=== PATIENT | male | born 1960 | race Caucasian/White ===

== ENCOUNTER → 2016-11-29 | Outpatient (CLI) | payer OTHER ==
[2015-08-27 12:30] VITALS: BP 128/78
[~2016-11-29] MED LIST: ALLO300T PO; METF850T2 PO; POTA10TA17 PO; TELM40TA PO
--- NOTE | 2016-11-29 12:57 | RAD ---
Indication abdominal pain. Supine films of the abdomen were obtained. Note is made of a previous plain film examination 09/17/2015. Note is made of the CT examination 08/27/2015 demonstrating bilateral renal calculi. The abdominal gas pattern is unremarkable. Bilateral renal calculi are noted. There is a right ureteral stent extending from the expected position of the renal pelvis to the urinary bladder. No definite calculi are seen along the course of the stent. Visualized bony structures appear grossly intact. IMPRESSION: Normal gas pattern. Right ureteral stent. No acute finding seen on KUB
== END | disposition home or self-care (01) ==
LOC: DXRAD 12:27
PROVIDERS: ATTEND Family Medicine
DX: N20.0 Calculus of kidney (principal)
CPT/HCPCS: 74000

== ENCOUNTER 2017-07-14 00:09 | Emergency (ER) | payer OTHER ==
[~2017-07-14] VITALS: Ht 182.9 cm; Wt 108.9 kg
[2017-07-14] MEDS ORDERED: ONDANSETRON ODT 4 MG TAB.RAPDIS ONE (00:14)
[2017-07-14] MEDS ORDERED: ONDANSETRON ODT 4 MG TAB.RAPDIS PO ONE (00:30)
[2017-07-14] MEDS ORDERED: PROMETHAZINE 12.5 MG in IV NORMAL SALINE 50ML 50 ML IV PRN (00:30)
[2017-07-14] MEDS ORDERED: IV NORMAL SALINE 50ML 50 ML ONE (00:39)
[2017-07-14] MEDS ORDERED: PROMETHAZINE 25 MG/ML VIAL IV ONE (00:39)
[2017-07-14 00:51] LABS: BASO % 0 % (0-3); EOS # 0.1 x10^3/uL (0.0-0.7); EOS % 1 % (0-3); HEMATOCRIT 49.4 % (39.0-53.0); LYMPH # 0.4 x10^3/uL (1.0-4.8); LYMPH % 3 % (24-48); MEAN CORPUSCULAR HEMOGLOBIN 30 pg (25-35); MEAN CORPUSCULAR HGB CONC 34 g/dL (31-37); MEAN CORPUSCULAR VOLUME 86 fL (79-100); MONO # 0.4 x10^3/uL (0.0-1.1); MONO % 3 % (0-9); NEUT # 11.9 x10^3uL (1.8-7.7); NEUT % 94 % (31-73); PLATELET COUNT 215 x10^3/uL (140-400); RED BLOOD COUNT 5.74 x10^6/uL (4.30-5.70); RED CELL DISTRIBUTION WIDTH 13.7 % (11.5-14.5); WHITE BLOOD COUNT 12.8 x10^3/uL (4.0-11.0)
[2017-07-14] MEDS ORDERED: MORPHINE SULFATE 4 MG/ML DISP.SYRIN. IV ONE (01:00)
[2017-07-14] MEDS ORDERED: KETOROLAC 30 MG/ML VIAL. IV ONE (01:00)
[2017-07-14] MEDS ORDERED: IV NORMAL SALINE 1,000ML 1,000 ML IV ONE ×2 (01:00→01:30)
[2017-07-14 01:21] LABS: CALCIUM 9.3 mg/dL (8.5-10.1); CREATININE 1.4 mg/dL (0.7-1.3); GFR 51.9; POTASSIUM 4.6 mmol/L (3.5-5.1); TOTAL BILIRUBIN 0.9 mg/dL (0.2-1.0)
--- NOTE | 2017-07-14 01:40 | ED.ADGEN ---
Past History Past Medical History: Diabetes, Hypertension, Kidney Stones Past Surgical History: Other Alcohol Use: None Drug Use: None Adult General Chief Complaint Chief Complaint Left flank pain, vomiting HPI HPI Patient is a 57-year-old male with history of kidney stones presents with intermittent left flank pain and vomiting times several hours. Patient states he states he has a known 9 millimeters stone and is scheduled to urology in [place] in [place] AM for surgical intervention. He states symptoms feel similar to previous stones. He vomited multiple times prior to ED arrival. No gross hematuria. No fever chills or sweats. No other symptoms or complaints.[] Review of Systems Review of Systems Review symptoms as per history of present illness. All other review symptoms are negative. All other systems were reviewed and found to be within normal limits, except as documented in this note. Current Medications Current Medications Current Medications Medications (Trade) Dose Ordered Sig/Rashi Start Time Stop Time Status Last Admin Dose Admin Ketorolac Tromethamine (Toradol) 30 mg 1X ONCE 07/14/17 01:00 07/14/17 01:01 DC 07/14/17 00:46 30 MG Morphine Sulfate (Morphine 4mg Syringe) 4 mg 1X ONCE 07/14/17 01:00 07/14/17 01:01 DC 07/14/17 00:46 4 MG Ondansetron HCl (Zofran Odt) 4 mg 1X ONCE 07/14/17 00:30 07/14/17 00:32 DC 07/14/17 00:46 4 MG Promethazine HCl (Phenergan) 25 mg STK-MED ONCE 07/14/17 00:39 07/14/17 00:40 DC Promethazine HCl (Starter Pack - Phenergan) 1 startpack 1X ONCE 07/14/17 03:00 07/14/17 03:01 07/14/17 02:46 1 STARTPACK Promethazine HCl 12.5 mg/Sodium Chloride 50.5 ml @ 101 mls/hr PRN Q6HRS PRN 07/14/17 00:30 07/14/17 00:47 101 MLS/HR Sodium Chloride 1,000 ml @ 1,000 mls/hr 1X ONCE 07/14/17 01:30 07/14/17 02:29 DC 07/14/17 01:30 1,000 MLS/HR Allergies Allergies Allergies Coded Allergies Type Severity Reaction Last Updated Verified No Known Drug Allergies 08/27/15 No Physical Exam Physical Exam Constitutional: Well developed, well nourished, no acute distress, non-toxic appearance. [] HENT: Normocephalic, atraumatic, bilateral external ears normal, oropharynx moist, no oral exudates, nose normal. [] Eyes: PERRLA, EOMI, conjunctiva normal, no discharge. [] Neck: Normal range of motion, no tenderness, supple, no stridor. [] Cardiovascular:Heart rate regular rhythm, no murmur [] Lungs & Thorax: Bilateral breath sounds clear to auscultation [] Abdomen: Bowel sounds normal, soft, no tenderness, no masses, no pulsatile masses. [] Skin: Warm, dry, no erythema, no rash. [] Back: No tenderness, no CVA tenderness. [] Neurologic: Alert and oriented X 3, normal motor function, normal sensory function, no focal deficits noted. [] Psychologic: Affect normal, judgement normal, mood normal. [] Current Patient Data Vital Signs Vital Signs Date Time Temp Pulse Resp B/P (MAP) Pulse Ox O2 Delivery O2 Flow Rate FiO2 07/14/17 00:09 98.2 118 24 98 Room Air Lab Results Laboratory Tests Test 07/14/17 00:33 07/14/17 01:40 White Blood Count 12.8 x10^3/uL (4.0-11.0) H Red Blood Count 5.74 x10^6/uL (4.30-5.70) H Hemoglobin 17.0 g/dL (13.0-17.5) Hematocrit 49.4 % (39.0-53.0) Mean Corpuscular Volume 86 fL (79-100) Mean Corpuscular Hemoglobin 30 pg (25-35) Mean Corpuscular Hemoglobin Concent 34 g/dL (31-37) Red Cell Distribution Width 13.7 % (11.5-14.5) Platelet Count 215 x10^3/uL (140-400) Neutrophils (%) (Auto) 94 % (31-73) H Lymphocytes (%) (Auto) 3 % (24-48) L Monocytes (%) (Auto) 3 % (0-9) Eosinophils (%) (Auto) 1 % (0-3) Basophils (%) (Auto) 0 % (0-3) Neutrophils # (Auto) 11.9 x10^3uL (1.8-7.7) H Lymphocytes # (Auto) 0.4 x10^3/uL (1.0-4.8) L Monocytes # (Auto) 0.4 x10^3/uL (0.0-1.1) Eosinophils # (Auto) 0.1 x10^3/uL (0.0-0.7) Basophils # (Auto) 0.0 x10^3/uL (0.0-0.2) Sodium Level 140 mmol/L (136-145) Potassium Level 4.6 mmol/L (3.5-5.1) Chloride Level 102 mmol/L (98-107) Carbon Dioxide Level 26 mmol/L (21-32) Anion Gap 12 (6-14) Blood Urea Nitrogen 17 mg/dL (8-26) Creatinine 1.4 mg/dL (0.7-1.3) H Estimated GFR (Cockcroft-Gault) 51.9 BUN/Creatinine Ratio 12 (6-20) Glucose Level 203 mg/dL (70-99) H Calcium Level 9.3 mg/dL (8.5-10.1) Total Bilirubin 0.9 mg/dL (0.2-1.0) Aspartate Amino Transferase (AST) 30 U/L (15-37) Alanine Aminotransferase (ALT) 52 U/L (16-63) Alkaline Phosphatase 87 U/L (46-116) Total Protein 8.0 g/dL (6.4-8.2) Albumin 4.0 g/dL (3.4-5.0) Albumin/Globulin Ratio 1.0 (1.0-1.7) Urine Collection Type Unknown Urine Color Yellow Urine Clarity Clear Urine pH 5.0 Urine Specific [place] 1.020 Urine Protein Neg (NEG-TRACE) Urine Glucose (UA) 100 mg/dL (NEG) Urine Ketones (Stick) 15 mg/dL (NEG) Urine Blood Neg (NEG) Urine Nitrite Neg (NEG) Urine Bilirubin Neg (NEG) Urine Urobilinogen Dipstick 0.2 mg/dL (0.2 mg/dL) Urine Leukocyte Esterase Neg (NEG) Urine RBC 0 /HPF (0-2) Urine WBC Rare /HPF (0-4) Urine Squamous Epithelial Cells Occ /LPF Urine Bacteria 0 /HPF (0-FEW) EKG EKG [] Radiology/Procedures Radiology/Procedures [XR KUB: Ureteral stones superimposed over kidney] Course & Med Decision Making Course & Med Decision Making Pertinent Labs and Imaging studies reviewed. (See chart for details) [Left flank pain nausea vomiting consistent with known kidney stone. Pain medication, fluid bolus nausea medication given. Patient resting My request discharge home. Patient has follow-up plans later this afternoon with Dr. Means in [facility]. Return precautions reviewed.] Final Impression Final Impression [1. Left flank pain 2. Ureteral colic] Problems: Dragon Disclaimer Dragon Disclaimer This electronic medical record was generated, in whole or in part, using a voice recognition dictation system. LULU MOE DO Jul 14, 2017 01:40
[2017-07-14 02:05] LABS: BACTERIA,URINE 0 /HPF (0-FEW); BILIRUBIN,URINE NEG (NEG); CLARITY,URINE CLEAR; COLOR,URINE YELLOW; GLUCOSE,URINE 100 mg/dL (NEG); NITRITE,URINE NEG (NEG); RBC,URINE 0 /HPF (0-2); SQUAMOUS EPITHELIAL CELL,UR OCC /LPF; UROBILINOGEN,URINE 0.2 mg/dL (0.2 mg/dL); WBC,URINE RARE /HPF (0-4)
[2017-07-14 02:45] VITALS: BP 132/83
[2017-07-14] MEDS ORDERED: PROMETHAZINE 25MG 4TABLET STARTPACK. PO ONE (03:00)
--- NOTE | 2017-07-14 07:51 | RAD ---
KUB, 07/14/2017: History: Left flank pain, previous kidney stones Comparison is made to a study from 11/29/2016. The right ureteral stent has been removed. The abdominal gas pattern is unremarkable. The right renal region is largely obscured by overlying bowel. There are several small radiopacities projected over the mid and lower pole of the left kidney compatible with intrarenal calculi. There is no evidence of organomegaly. IMPRESSION: 1. Left intrarenal calculi. 2. No acute abdominal abnormality is detected. 3. If there is clinical suspicion of a ureteral calculus, CT scanning is suggested for further evaluation.
== END 2017-07-14 02:52 | disposition home or self-care (01) ==
LOC: ER 00:09
DX: N23 Unspecified renal colic (principal); E11.9 Type 2 diabetes mellitus without complications; I10 Essential (primary) hypertension; Z87.442 Personal history of urinary calculi
CPT/HCPCS: 36415; 74018; 80053; 81001; 85025; 96361; 96365; 96375; 99285; J1885; J2270; J2550; Q0162; J7030

== ENCOUNTER 2017-07-21 20:31 | Emergency (ER) | payer OTHER ==
[~2017-07-21] VITALS: Ht 182.9 cm; Wt 104.3 kg
[2017-07-21] MEDS ORDERED: IV NORMAL SALINE 1,000ML 1,000 ML IV SCH (22:08)
[2017-07-21] MEDS ORDERED: ONDANSETRON PF 4 MG/2 ML VIAL. IV ONE (22:15)
[2017-07-21 22:32] LABS: BASO % 1 % (0-3); EOS # 0.1 x10^3/uL (0.0-0.7); EOS % 1 % (0-3); HEMATOCRIT 48.9 % (39.0-53.0); LYMPH % 21 % (24-48); MEAN CORPUSCULAR HEMOGLOBIN 30 pg (25-35); MEAN CORPUSCULAR HGB CONC 35 g/dL (31-37); MEAN CORPUSCULAR VOLUME 85 fL (79-100); MONO # 0.7 x10^3/uL (0.0-1.1); MONO % 15 % (0-9); NEUT % 62 % (31-73); PLATELET COUNT 239 x10^3/uL (140-400); RED BLOOD COUNT 5.77 x10^6/uL (4.30-5.70); RED CELL DISTRIBUTION WIDTH 13.9 % (11.5-14.5); WHITE BLOOD COUNT 4.8 x10^3/uL (4.0-11.0)
[2017-07-21 22:42] LABS: ALBUMIN 3.7 g/dL (3.4-5.0); ALBUMIN/GLOBULIN RATIO 0.8 (1.0-1.7); CREATININE 1.5 mg/dL (0.7-1.3); GFR 47.9; POTASSIUM 4.2 mmol/L (3.5-5.1); TOTAL BILIRUBIN 0.8 mg/dL (0.2-1.0); TOTAL PROTEIN 8.3 g/dL (6.4-8.2)
[2017-07-21 22:50] LABS: BACTERIA,URINE 0 /HPF (0-FEW); BILIRUBIN,URINE NEG (NEG); CLARITY,URINE CLEAR; COLOR,URINE AMBER; GLUCOSE,URINE NEG (NEG); NITRITE,URINE POS (NEG); RBC,URINE TNTC /HPF (0-2); SQUAMOUS EPITHELIAL CELL,UR OCC /LPF; UROBILINOGEN,URINE 0.2 mg/dL (0.2 mg/dL)
--- NOTE | 2017-07-21 23:00 | PHYS DOC ---
Past History Past Medical History: Diabetes, Hypertension, Kidney Stones Additional Past Medical Histor: Gout Past Surgical History: Other Additional Past Surgical Histo: Cystoscopy with stent; Shoulder Smoking: Non-smoker Alcohol Use: None Drug Use: None Adult General Chief Complaint Chief Complaint: FEVER HPI HPI Patient is a 57 year old male who presents with fever. He recently had a cystoscopy with stone removal and stent placement on 07/14/16 at [place], [place]. His stent was removed 07/19/16. He was on bactrim for a few days after surgery and has completed that. He noticed that he had temperature 100.1. Nausea and vomiting as well. No blood in urine that he can see. He has diffuse body aches. No sore throat or cough. No abdominal pain. Review of Systems Review of Systems Constitutional: POS fever or chills Eyes: Denies change in visual acuity, redness, or eye pain HENT: Denies nasal congestion or sore throat Respiratory: Denies cough or shortness of breath Cardiovascular: No chest pain GI: Denies abdominal pain, POS nausea & vomiting, Denies bloody stools or diarrhea : Denies dysuria or hematuria Musculoskeletal: POS back pain and joint pain Integument: Denies rash or skin lesions Neurologic: Denies headache, focal weakness or sensory changes All other systems were reviewed and found to be within normal limits, except as documented in this note. Current Medications Current Medications Current Medications Medications (Trade) Dose Ordered Sig/Rashi Start Time Stop Time Status Last Admin Dose Admin Ondansetron HCl (Zofran) 4 mg 1X ONCE 07/21/17 22:15 07/21/17 22:17 DC 07/21/17 22:26 4 MG Sodium Chloride 1,000 ml @ 1,000 mls/hr Q1H 07/21/17 22:08 07/21/17 23:07 07/21/17 22:26 1,000 MLS/HR Allergies Allergies Allergies Coded Allergies Type Severity Reaction Last Updated Verified No Known Drug Allergies 08/27/15 No Physical Exam Physical Exam Constitutional: Well developed, well nourished, no acute distress, non-toxic appearance. HENT: Normocephalic, atraumatic, bilateral external ears normal, oropharynx moist, no oral exudates, nose normal. Eyes: PERRLA, EOMI, conjunctiva normal, no discharge. Neck: Normal range of motion, no tenderness, supple, no stridor. Cardiovascular:Heart rate regular rhythm, no murmur Lungs & Thorax: Bilateral breath sounds clear to auscultation Abdomen: Bowel sounds normal, soft, no tenderness, no masses, no pulsatile masses. Skin: Warm, dry, no erythema, no rash. Back: No tenderness, no CVA tenderness. Extremities: No tenderness, no cyanosis, no clubbing, ROM intact, no edema. Neurologic: Alert and oriented X 3, normal motor function, normal sensory function, no focal deficits noted. Psychologic: Affect normal, judgement normal, mood normal. Current Patient Data Lab Results Laboratory Tests Test 07/21/17 22:05 White Blood Count 4.8 x10^3/uL (4.0-11.0) Red Blood Count 5.77 x10^6/uL (4.30-5.70) H Hemoglobin 17.0 g/dL (13.0-17.5) Hematocrit 48.9 % (39.0-53.0) Mean Corpuscular Volume 85 fL (79-100) Mean Corpuscular Hemoglobin 30 pg (25-35) Mean Corpuscular Hemoglobin Concent 35 g/dL (31-37) Red Cell Distribution Width 13.9 % (11.5-14.5) Platelet Count 239 x10^3/uL (140-400) Neutrophils (%) (Auto) 62 % (31-73) Lymphocytes (%) (Auto) 21 % (24-48) L Monocytes (%) (Auto) 15 % (0-9) H Eosinophils (%) (Auto) 1 % (0-3) Basophils (%) (Auto) 1 % (0-3) Neutrophils # (Auto) 3.0 x10^3uL (1.8-7.7) Lymphocytes # (Auto) 1.0 x10^3/uL (1.0-4.8) Monocytes # (Auto) 0.7 x10^3/uL (0.0-1.1) Eosinophils # (Auto) 0.1 x10^3/uL (0.0-0.7) Basophils # (Auto) 0.0 x10^3/uL (0.0-0.2) Platelet Estimate Pending Urine Collection Type Unknown Urine Color [place] Urine Clarity Clear Urine pH 5.0 Urine Specific [place] 1.020 Urine Protein 100 mg/dl (NEG-TRACE) Urine Glucose (UA) Neg mg/dL (NEG) Urine Ketones (Stick) 15 mg/dL (NEG) Urine Blood Large (NEG) Urine Nitrite Pos (NEG) Urine Bilirubin Neg (NEG) Urine Urobilinogen Dipstick 0.2 mg/dL (0.2 mg/dL) Urine Leukocyte Esterase Neg (NEG) Urine RBC Tntc /HPF (0-2) Urine WBC 1-4 /HPF (0-4) Urine Squamous Epithelial Cells Occ /LPF Urine Bacteria 0 /HPF (0-FEW) Urine Mucus Slight /LPF Sodium Level 135 mmol/L (136-145) L Potassium Level 4.2 mmol/L (3.5-5.1) Chloride Level 99 mmol/L (98-107) Carbon Dioxide Level 24 mmol/L (21-32) Anion Gap 12 (6-14) Blood Urea Nitrogen 11 mg/dL (8-26) Creatinine 1.5 mg/dL (0.7-1.3) H Estimated GFR (Cockcroft-Gault) 47.9 BUN/Creatinine Ratio 7 (6-20) Glucose Level 162 mg/dL (70-99) H Lactic Acid Level 0.9 mmol/L (0.4-2.0) Calcium Level 9.0 mg/dL (8.5-10.1) Total Bilirubin 0.8 mg/dL (0.2-1.0) Aspartate Amino Transferase (AST) 117 U/L (15-37) H Alanine Aminotransferase (ALT) 160 U/L (16-63) H Alkaline Phosphatase 169 U/L (46-116) H Total Protein 8.3 g/dL (6.4-8.2) H Albumin 3.7 g/dL (3.4-5.0) Albumin/Globulin Ratio 0.8 (1.0-1.7) L Course & Med Decision Making Course & Med Decision Making Evaluated Patient, IV NS and zofran dosed. Lab and urine sent. At 2300 PM Lab returning and liver function test are elevated. I compared the LFT to 07/14/16 and they were normal then; IV Rocephin started. At 2330 PM patient received IVF and pain meds. Offered admission; patient declined. Understands risks. Stressed he MUST have his liver functions repeated this coming week. Unclear etiology and he has no abdominal pain at this time. He understands that if he worsens at all he needs to return. I have spoken with the patient and/or caregivers. I have explained the patient' s condition, diagnosis and treatment plan based on the information available to me at this time. I have answered the patient's and/or caregiver's questions and addressed any concerns. The patient and/or caregivers have as good an understanding of the patient's diagnosis, condition and treatment plan as can be expected at this point. The patient's condition is stable and appropriate for discharge from the emergency department. The patient will pursue further outpatient evaluation with the primary care physician or other designated or consulting physician as outlined in the discharge instructions. The patient and/or caregivers are agreeable to this plan of care and follow-up instructions have been explained in detail. The patient and/or caregivers have received these instructions in written format and have expressed an understanding of the discharge instructions. The patient and/or caregivers are aware that any significant change in condition or worsening of symptoms should prompt an immediate return to this or the closest emergency department or a call to 911. Dragon Disclaimer Dragon Disclaimer This electronic medical record was generated, in whole or in part, using a voice recognition dictation system. Departure Departure: Impression: Primary Impression: Pyelonephritis Additional Impression: Elevated liver function tests Disposition: 01 HOME, SELF-CARE Condition: STABLE Referrals: MARIE WILBURN DO (PCP) Patient Instructions: Pyelonephritis, Adult Additional Instructions: YOU HAVE ELEVATED LIVER FUNCTION TESTS. THESE NEED TO BE REPEATED NEXT WEEK. YOU WERE GIVEN ANTIBIOTICS HERE. IF YOU WORSEN AT ALL THIS WEEKEND YOU NEED TO RETURN IMMEDIATELY. Scripts Ondansetron (ZOFRAN ODT) 8 Mg Tab.rapdis 4 MG PO Q4-6HRS Y for NAUSEA, #10 Prov: OG YOUNG MD 07/21/17 Levofloxacin (LEVAQUIN) 750 Mg Tablet 1 TAB PO DAILY, #7 TAB Prov: OG YOUNG MD 07/21/17 Problem Qualifiers OG YOUNG MD Jul 21, 2017 23:00
[2017-07-21] MEDS ORDERED: IV NORMAL SALINE 50ML 50 ML ONE (23:06)
[2017-07-21] MEDS ORDERED: cefTRIAXone SODIUM 1 GM VIAL IV ONE (23:06)
[2017-07-21 23:28] LABS: % ATYL 6 % (0-0); % BANDS 16 % (0-9); % LYMPHS 17 % (24-48); % MONOS 9 % (0-10); % SEGS 52 % (35-66); PLT ESTIMATE ADEQUATE (ADEQUATE)
[2017-07-21] MEDS ORDERED: ONDA8TAB12 PO (23:37)
[2017-07-21] MEDS ORDERED: LEVO750T31 PO (23:37)
[2017-07-21 23:53] VITALS: BP 121/71
== END 2017-07-21 23:52 | disposition home or self-care (01) ==
LOC: ER 20:31
DX: N12 Tubulo-interstitial nephritis, not specified as acute or chronic (principal); R79.89 Other specified abnormal findings of blood chemistry; E11.9 Type 2 diabetes mellitus without complications; I10 Essential (primary) hypertension; Z87.442 Personal history of urinary calculi; Z98.890 Other specified postprocedural states
CPT/HCPCS: 36415; 80053; 81001; 83605; 85007; 85025; 87040; 87086; 96361; 96365; 96375; 99284; J0696; J2405; J7030

== ENCOUNTER 2018-04-12 02:22 | Emergency (ER) | payer OTHER ==
[~2018-04-12] VITALS: Ht 182.9 cm; Wt 105.2 kg
[~2018-04-12 02:22] MED LIST changes: +LEVO750T31 PO; -METF850T2 PO; +METF850T8 PO; +ONDA8TAB12 PO
[2018-04-12] MEDS ORDERED: IV NORMAL SALINE 1,000ML 1,000 ML IV ONE (02:45)
[2018-04-12] MEDS ORDERED: KETOROLAC 15 MG/ML VIAL. IV ONE (02:45)
[2018-04-12] MEDS ORDERED: METOCLOPRAMIDE HCL 10 MG/2 ML VIAL. IV ONE (02:45)
[2018-04-12 03:15] LABS: BASO # 0.1 x10^3/uL (0.0-0.2); BASO % 1 % (0-3); EOS # 0.1 x10^3/uL (0.0-0.7); EOS % 2 % (0-3); HEMOGLOBIN 16.4 g/dL (13.0-17.5); LYMPH # 1.8 x10^3/uL (1.0-4.8); LYMPH % 25 % (24-48); MEAN CORPUSCULAR HEMOGLOBIN 29 pg (25-35); MEAN CORPUSCULAR HGB CONC 34 g/dL (31-37); MEAN CORPUSCULAR VOLUME 85 fL (79-100); MONO # 0.6 x10^3/uL (0.0-1.1); MONO % 8 % (0-9); NEUT # 4.6 x10^3uL (1.8-7.7); NEUT % 64 % (31-73); PLATELET COUNT 223 x10^3/uL (140-400); RED BLOOD COUNT 5.63 x10^6/uL (4.30-5.70); RED CELL DISTRIBUTION WIDTH 13.4 % (11.5-14.5); WHITE BLOOD COUNT 7.2 x10^3/uL (4.0-11.0)
[2018-04-12 03:28] LABS: BACTERIA,URINE 0 /HPF (0-FEW); BILIRUBIN,URINE NEG (NEG); CLARITY,URINE CLOUDY; COLOR,URINE RED; GLUCOSE,URINE NEG (NEG); NITRITE,URINE NEG (NEG); RBC,URINE TNTC /HPF (0-2); SQUAMOUS EPITHELIAL CELL,UR OCC /LPF; UROBILINOGEN,URINE 0.2 mg/dL (0.2 mg/dL)
[2018-04-12 03:34] LABS: ALBUMIN 3.7 g/dL (3.4-5.0); ALBUMIN/GLOBULIN RATIO 0.9 (1.0-1.7); CALCIUM 10.4 mg/dL (8.5-10.1); CREATININE 3.2 mg/dL (0.7-1.3); GFR 19.9; MAGNESIUM 1.6 mg/dL (1.8-2.4); POTASSIUM 4.6 mmol/L (3.5-5.1); TOTAL BILIRUBIN 0.9 mg/dL (0.2-1.0); TOTAL PROTEIN 7.6 g/dL (6.4-8.2)
--- NOTE | 2018-04-12 03:57 | PHYS DOC ---
Past History Past Medical History: Diabetes, Kidney Stones, Other Additional Past Medical Histor: Gout, hemachromatosis Past Surgical History: Other Additional Past Surgical Histo: Cystoscopy with stent; Shoulder Smoking: Non-smoker Alcohol Use: None Drug Use: None Adult General Chief Complaint Chief Complaint: BLOOD IN URINE HPI HPI 58-year-old male with past medical history of kidney stones presents with report of hematuria which started today with lower abdominal pain with radiation to bilateral flanks (left greater than right). Denies nausea or vomiting. Denies fever or chills. Patient does report passing approximately 24 stones since January. Reports he did pass a stone most recently on Monday. Denies known trauma. Denies rash. Review of Systems Review of Systems Constitutional: Denies fever or chills [] Eyes: Denies change in visual acuity, redness, or eye pain [] HENT: Denies nasal congestion or sore throat [] Respiratory: Denies cough or shortness of breath [] Cardiovascular: Denies chest pain or palpitations GI: Reports abdominal pain; denies nausea, vomiting, or diarrhea [] : Denies dysuria; reports hematuria Musculoskeletal: Reports back pain; denies joint pain [] Integument: Denies rash or skin lesions [] Neurologic: Denies headache, focal weakness or sensory changes [] Complete systems were reviewed and found to be within normal limits, except as documented in this note. Current Medications Current Medications Current Medications Medications (Trade) Dose Ordered Sig/Rashi Start Time Stop Time Status Last Admin Dose Admin Ketorolac Tromethamine (Toradol 15mg Vial) 10 mg 1X ONCE 04/12/18 02:45 04/12/18 02:47 DC 04/12/18 02:45 10 MG Magnesium Sulfate 50 ml @ 25 mls/hr 1X ONCE 04/12/18 04:00 04/12/18 05:59 UNV Metoclopramide HCl (Reglan Vial) 10 mg 1X ONCE 04/12/18 02:45 04/12/18 02:47 DC 04/12/18 03:19 10 MG Sodium Chloride 1,000 ml @ 1,000 mls/hr 1X ONCE 04/12/18 02:45 04/12/18 03:44 DC 04/12/18 03:18 1,000 MLS/HR Allergies Allergies Allergies Coded Allergies Type Severity Reaction Last Updated Verified No Known Drug Allergies 08/27/15 No Physical Exam Physical Exam Constitutional: Well developed, well nourished, no acute distress, non-toxic appearance. [] HENT: Normocephalic, atraumatic, mucous membranes moist Eyes: Conjunctiva normal, no discharge. [] Neck: Normal range of motion, no tenderness, supple, no meningeal signs[] Cardiovascular: Heart rate regular rhythm, no murmur [] Lungs & Thorax: Bilateral breath sounds clear to auscultation; no wheezes rhonchi or rails Abdomen: Soft, no tenderness Skin: Warm, dry, no erythema, no rash. [] Back: No tenderness, no CVA tenderness. [] Extremities: No tenderness, ROM intact, no edema. [] Neurologic: Alert and oriented X 3, normal motor function, normal sensory function, no focal deficits noted. [] Psychologic: Affect normal, judgement normal, mood normal. [] Current Patient Data Vital Signs Vital Signs Date Time Temp Pulse Resp B/P (MAP) Pulse Ox O2 Delivery O2 Flow Rate FiO2 04/12/18 02:34 98.2 86 20 95 Room Air Lab Results Laboratory Tests Test 04/12/18 02:51 04/12/18 02:56 Urine Collection Type Unknown Urine Color Red Urine Clarity Cloudy Urine pH 5.5 Urine Specific [place] 1.020 Urine Protein >100 mg/dl (NEG-TRACE) Urine Glucose (UA) Neg mg/dL (NEG) Urine Ketones (Stick) Neg mg/dL (NEG) Urine Blood Large (NEG) Urine Nitrite Neg (NEG) Urine Bilirubin Neg (NEG) Urine Urobilinogen Dipstick 0.2 mg/dL (0.2 mg/dL) Urine Leukocyte Esterase Neg (NEG) Urine RBC Tntc /HPF (0-2) Urine WBC 1-4 /HPF (0-4) Urine Squamous Epithelial Cells Occ /LPF Urine Bacteria 0 /HPF (0-FEW) White Blood Count 7.2 x10^3/uL (4.0-11.0) Red Blood Count 5.63 x10^6/uL (4.30-5.70) Hemoglobin 16.4 g/dL (13.0-17.5) Hematocrit 48.0 % (39.0-53.0) Mean Corpuscular Volume 85 fL (79-100) Mean Corpuscular Hemoglobin 29 pg (25-35) Mean Corpuscular Hemoglobin Concent 34 g/dL (31-37) Red Cell Distribution Width 13.4 % (11.5-14.5) Platelet Count 223 x10^3/uL (140-400) Neutrophils (%) (Auto) 64 % (31-73) Lymphocytes (%) (Auto) 25 % (24-48) Monocytes (%) (Auto) 8 % (0-9) Eosinophils (%) (Auto) 2 % (0-3) Basophils (%) (Auto) 1 % (0-3) Neutrophils # (Auto) 4.6 x10^3uL (1.8-7.7) Lymphocytes # (Auto) 1.8 x10^3/uL (1.0-4.8) Monocytes # (Auto) 0.6 x10^3/uL (0.0-1.1) Eosinophils # (Auto) 0.1 x10^3/uL (0.0-0.7) Basophils # (Auto) 0.1 x10^3/uL (0.0-0.2) Prothrombin Time 9.9 SEC (9.4-11.4) Prothrombin Time INR 1.0 (0.9-1.1) PTT 26 SEC (23-33) Sodium Level 137 mmol/L (136-145) Potassium Level 4.6 mmol/L (3.5-5.1) Chloride Level 101 mmol/L (98-107) Carbon Dioxide Level 25 mmol/L (21-32) Anion Gap 11 (6-14) Blood Urea Nitrogen 30 mg/dL (8-26) H Creatinine 3.2 mg/dL (0.7-1.3) H Estimated GFR (Cockcroft-Gault) 19.9 BUN/Creatinine Ratio 9 (6-20) Glucose Level 162 mg/dL (70-99) H Calcium Level 10.4 mg/dL (8.5-10.1) H Magnesium Level 1.6 mg/dL (1.8-2.4) L Total Bilirubin 0.9 mg/dL (0.2-1.0) Aspartate Amino Transferase (AST) 25 U/L (15-37) Alanine Aminotransferase (ALT) 44 U/L (16-63) Alkaline Phosphatase 87 U/L (46-116) Total Protein 7.6 g/dL (6.4-8.2) Albumin 3.7 g/dL (3.4-5.0) Albumin/Globulin Ratio 0.9 (1.0-1.7) L Lipase 202 U/L (73-393) EKG EKG [] Radiology/Procedures Radiology/Procedures PROCEDURE: CT ABDOMEN PELVIS WO CONTRAST INDICATION: bilateral flank pain, hematuria
hx stones, lithrotripsy
COMPARISON: August 27 2015 TECHNIQUE: Axial CT images obtained through the abdomen and pelvis without contrast. Limited assessment of solid organ structures and vasculature secondary to lack of intravenous contrast.. One or more of the following individualized dose reduction techniques were utilized for this examination: 1. Automated exposure control; 2. Adjustment of the mA and/or kV according to patient size; 3. Use of iterative reconstruction technique. FINDINGS: Small hiatal hernia. Abdominal aorta is not aneurysmal. Mild calcific atherosclerosis. Fat-containing bilateral inguinal hernia. No intrahepatic bile duct dilation. No peripancreatic fluid collection. Spleen unremarkable. Multiple bilateral nonobstructive renal stones. Left-sided hydronephrosis with 6 mm left proximal ureter stone. Additional 3 mm stone near left ureterovesicular junction. Multiple renal stones within the right side of the urinary bladder at the expected location of right ureterovesicular junction. Right-sided hydronephrosis with 5 mm right proximal ureter stone. Additional multiple right mid ureter stones measuring up to about 5 mm. Urinary bladder is decompressed with apparent wall thickening and haziness. Colonic diverticulosis. No periappendiceal inflammation. Prominent size of prostate. No dilated loops of bowel to suggest obstruction. Small fat-containing umbilical hernia. There couple of mildly prominent loops of small bowel within the abdomen measuring up to approximately 32 mm. Degenerative changes throughout the spine with multilevel central canal and neural foraminal stenosis. IMPRESSION: 1. Bilateral hydronephrosis with multiple bilateral renal stones, ureter stones as well as stones within the urinary bladder. 2. Urinary bladder wall is prominent in thickness. This is more than typically seen and would correlate for possible causes such as cystitis or bladder wall lesion. 3. There are a couple of dilated loops of small bowel seen within the abdomen without a high-grade transition point to suggest obstruction. Electronically signed by: Leonid Herndon MD (04/12/2018 4:09 AM) [facility] Course & Med Decision Making Course & Med Decision Making Pertinent Labs and Imaging studies reviewed. (See chart for details) Patient with significant past medical history of kidney stones presents with hematuria and report of abdominal pain with radiation to bilateral flanks. Denies fever or chills. Symptomatic treatment provided. IV fluid hydration also given. Labs obtained and posted to chart. BUNs/creatinine elevated from prior. UA with signs of hematuria, but lacks infectious component. CT abdomen/pelvis with bilateral obstructing ureteral calculi with hydronephrosis. Left sided stone max 6mm proximally, Right sided stone max 5mm x 2 to proximal and mid ureter. Patient requiring transfer for further evaluation and treatment from urology. 0430- Page out to Dr. Burton (urology) at [facility]. Discussed with Dr. Ayala (hospitalist) who is in agreement with transfer to [facility] for admission. Discussed findings and plan with patient, who acknowledges understanding and agreement.. Dragon Disclaimer Dragon Disclaimer This electronic medical record was generated, in whole or in part, using a voice recognition dictation system. Departure Departure: Impression: Primary Impression: Bilateral ureteral calculi Additional Impression: Acute on chronic renal failure Disposition: 05 XFER OTHER ([facility]- Dr. Ayala (hospitalist ) with Dr. Burton (urologist) consultation.) Condition: GUARDED Referrals: MARIE WILBURN DO (PCP) Problem Qualifiers Additional Impression: Acute on chronic renal failure Acute renal failure type: unspecified Chronic kidney disease stage: unspecified stage Qualified Codes: N17.9 - Acute kidney failure, unspecified; N18.9 - Chronic kidney disease, unspecified SARA RAMIREZ DO Apr 12, 2018 03:57
--- NOTE | 2018-04-12 04:13 | RAD ---
INDICATION: bilateral flank pain, hematuria
hx stones, lithrotripsy
COMPARISON: August 27 2015 TECHNIQUE: Axial CT images obtained through the abdomen and pelvis without contrast. Limited assessment of solid organ structures and vasculature secondary to lack of intravenous contrast.. One or more of the following individualized dose reduction techniques were utilized for this examination: 1. Automated exposure control; 2. Adjustment of the mA and/or kV according to patient size; 3. Use of iterative reconstruction technique. FINDINGS: Small hiatal hernia. Abdominal aorta is not aneurysmal. Mild calcific atherosclerosis. Fat-containing bilateral inguinal hernia. No intrahepatic bile duct dilation. No peripancreatic fluid collection. Spleen unremarkable. Multiple bilateral nonobstructive renal stones. Left-sided hydronephrosis with 6 mm left proximal ureter stone. Additional 3 mm stone near left ureterovesicular junction. Multiple renal stones within the right side of the urinary bladder at the expected location of right ureterovesicular junction. Right-sided hydronephrosis with 5 mm right proximal ureter stone. Additional multiple right mid ureter stones measuring up to about 5 mm. Urinary bladder is decompressed with apparent wall thickening and haziness. Colonic diverticulosis. No periappendiceal inflammation. Prominent size of prostate. No dilated loops of bowel to suggest obstruction. Small fat-containing umbilical hernia. There couple of mildly prominent loops of small bowel within the abdomen measuring up to approximately 32 mm. Degenerative changes throughout the spine with multilevel central canal and neural foraminal stenosis. IMPRESSION: 1. Bilateral hydronephrosis with multiple bilateral renal stones, ureter stones as well as stones within the urinary bladder. 2. Urinary bladder wall is prominent in thickness. This is more than typically seen and would correlate for possible causes such as cystitis or bladder wall lesion. 3. There are a couple of dilated loops of small bowel seen within the abdomen without a high-grade transition point to suggest obstruction. Electronically signed by: Leonid Herndon MD (04/12/2018 4:09 AM) [facility]
[2018-04-12] MEDS ORDERED: MAGNESIUM SULFATE 2GM 50 ML IV ONE (04:15)
[2018-04-12 07:53] VITALS: BP 178/98
== END 2018-04-12 08:06 | disposition short-term general hospital (02) ==
LOC: ER 02:22
DX: N13.2 Hydronephrosis with renal and ureteral calculous obstruction (principal); E11.22 Type 2 diabetes mellitus with diabetic chronic kidney disease; N18.9 Chronic kidney disease, unspecified; N17.9 Acute kidney failure, unspecified; Z87.442 Personal history of urinary calculi
CPT/HCPCS: 36415; 74176; 80053; 81001; 83690; 83735; 85025; 85610; 85730; 96365; 96368; 96375; 96376; 99285; J1885; J2765; J3010; J3475; J7030